=== PATIENT | female | born 1995 | race American Indian/Alaskan Native ===

== ENCOUNTER 2018-09-26 01:18 | Inpatient (IN) | payer MEDICAID ==
--- NOTE | 2018-09-26 02:32 | Ultrasound Report ---
FINAL REPORT EXAM: US OB LIMITED HISTORY: well being TECHNIQUE: A limited OB sonogram was obtained for evaluation of amniotic fluid index. FINDINGS: The fetus is in cephalic presentation. The heart rate is 132 BPM. The placenta is fundal in pos ition and is grade 1. The REDD is 11.5 cm which is normal. IMPRESSION: Cephalic presentation. Normal REDD of 11.5 cm. heart rate is 132 BPM.
--- NOTE | 2018-09-26 02:33 | Ultrasound Report ---
FINAL REPORT EXAM: US OB BPP WO NON-STRESS HISTORY: well being TECHNIQUE: A limited obstetrical sonogram was obtained for evaluation of the biophysical profile. FINDINGS: For movements, a score of 2 out of 2 was obtained. For breathing movements, a score of 2 out of 2 was obtained. For posture in tone, a score of 2 out of 2 was obtained. For qualitative amniotic fluid volume, a score of 2 out of 2 was obtained. The heart rate is 132 BPM IMPRESSION: Biophysical profile score of 8 out of 8
[2018-09-26] MEDS ORDERED: SUBLIMAZE IV PRN (02:35)
[2018-09-26] MEDS ORDERED: BRETHINE SUB-Q PRN (02:35)
[2018-09-26] MEDS ORDERED: BRETHINE IVP PRN (02:35)
[2018-09-26] MEDS ORDERED: AMPICILLIN/NS 2 GM/100 ML 2 GM/100 ML BAG IV ONE (02:35)
[2018-09-26] MEDS ORDERED: MINERAL OIL PO PRN (02:35)
[2018-09-26] MEDS ORDERED: XYLOCAINE 2% INFILTRATI ONE (02:35)
--- NOTE | 2018-09-26 02:50 | History and Physical Report ---
Addendum entered and electronically signed by MALOU GRADY CNM 09/27/18 08:50: Original Note: <MALOU GRADY - Last Filed: 09/26/18 02:51> History of Present Illness Date of examination: 09/26/18 Date of admission: 09/26/18 02:33 Chief complaint: SROM, decreased movement History of present illness: Past History : 3 Term Births: 0 Premature Births: 0 Living Children: 0 Para: 0 Mult. Births: 0 Prev : 0 Aborta: 1 Elect. Ab: 1 Spont. Ab: 1 # 1 Delivery date: 12/2015 Weeks Gestation: 13wks Delivery type: SAB Past Medical History: Reviewed history from 11/11/2015 and no changes required: Negative Past Medical History Past Surgical History: Reviewed history from 11/11/2015 and no changes required: T&A 2009 Past Medical History Abnormal PAP: negative Family Hx: Mother - htn Maternal aunt - breast ca Social Hx: Patient is single no smoking/etoh/drugs Smoking History: Patient has never smoked. hx thc but stopped no etoh Infection History Hx of STD: chlamydia HIV Risk Eval: no Hepatitis B Risk Eval: low risk Personal hx. of genital herpes: no Partner hx. of genital herpes: no Rash, Viral, or Febrile illness since last LMP? no Varicella/Chicken Pox Status: Previous Disease Genetic History Congenital Heart Defect: Mom: no Dad: no Lauren Disease: Mom: no Dad: no Thalassemia Mom: no Dad: no Neural Tube Defect Mom: no Dad: no Down's Syndrome Mom: no Dad: no Apollo-Sachs Mom: no Dad: no Sickle Cell Disease/Trait Mom: no Dad: no Hemophilia Mom: no Dad: no Muscular Dystrophy Mom: no Dad: no Cystic Fibrosis Mom: no Dad: no Hyde Chorea Mom: no Dad: no Mental Retardation Mom: no Dad: no Fragile X Mom: no Dad: no Other Genetic/Chromosomal Disorder Mom: no Dad: no Child w/other defect Mom: no Dad: no Enviromental Exposures Enviromental Exposures Reviewed Xray Exposure: no Medication, drug, or alcohol use since LMP: no Chemical/Other Exposure: no Exposure to Cat Liter: no Hx of Parvovirus (Fifth Disease): no Occupational Exposure to Children: none Active Medications (reviewed today): None Current Allergies (reviewed today): No known allergies Past History Past Medical History: other (see hpi) Past Surgical History: other (see hpi) [employer] History: other (see hpi) Family/Genetic History: other (see hpi) Social history: other (see hpi) - Obstetrical History : 3 Medications and Allergies Allergies Allergy/AdvReac Type Severity Reaction Status Date / Time No Known Allergies Allergy Verified 09/26/18 01:25 Active Meds: Active Medications Ephedrine Sulfate (Ephedrine Sulfate) 10 mg IV Q2M PRN PRN Reason: Hypotension Fentanyl (Sublimaze) 100 mcg IV Q2H PRN PRN Reason: Labor Pain Ampicillin Sodium (Polycillin/Ns 2 Gm/100 Ml) 2 gm in 100 mls @ 100 mls/hr IV ONCE ONE; Protocol Stop: 09/26/18 03:34 Ampicillin Sodium (Ampicillin/Ns 1 Gm/50 Ml) 1 gm in 50 mls @ 100 mls/hr IV Q4HR NANI; Protocol Lactated Ringer's (Lactated Ringers) 1,000 mls @ 125 mls/hr IV DIRECT NANI Oxytocin/Sodium Chloride (Pitocin/Ns 20 Unit/1000ml Drip) 20 units in 1,000 mls @ 125 mls/hr IV DIRECT NANI Oxytocin/Sodium Chloride (Pitocin/Ns 30 Unit/500ml) 30 units in 500 mls @ 2 mls/hr IV TITR NANI; Protocol Mineral Oil (Mineral Oil) 30 ml PO QHS PRN PRN Reason: Constipation Terbutaline Sulfate (Brethine) 0.25 mg SUB-Q ONCE PRN PRN Reason: Hyperstimulation/Hypertonicity Terbutaline Sulfate (Brethine) 0.25 mg IVP ONCE PRN PRN Reason: Hyperstimulation/Hypertonicity - Vital Signs Vital signs: Vital Signs Pulse BP 82 121/88 09/26/18 01:27 09/26/18 01:27 Temp Pulse Resp BP Pulse Ox 98.2 F 83 18 138/84 100 09/26/18 01:31 09/26/18 01:57 09/26/18 01:31 09/26/18 01:57 09/26/18 01:38 Results All other labs normal. Ultrasound: image reviewed (BPP 04/13. REDD 11.5cm, Cephalic) Assessment and Plan 23 y.o. IUP 36w 0d presents to triage with c/o SROM and decreased movement. Reports large gush of clear fluid at 0015 but is unsure if she has felt movement since then. BPP and REDD upon arrival to triage are 8/8 and 11.5cm, fetus is cephalic. SVE is 1/60/-2. Occasional contractions noted on TOCO. Category 1 tracing. GBS collected at last office visit but results are not available for review yet. Routine admission orders placed. Ampicillin per protocol for unknown GBS status. Will begin pitocin per protocol once first dose of abx has infused. Plan of care reviewed with Dr. Flores who agrees to pro ceed. Will continue to monitor and anticipate vaginal delivery. - Patient Problems (1) 36 weeks gestation of Current Visit: Yes Status: Acute (2) SROM (spontaneous rupture of membranes) Current Visit: Yes Status: Acute (3) premature rupture of membranes Current Visit: Yes Status: Acute <OMAR BLANCA - Last Filed: 09/26/18 05:28> History of Present Illness Date of admission: 09/26/18 02:33 Medications and Allergies Active Meds: Active Medications Ephedrine Sulfate (Ephedrine Sulfate) 10 mg IV Q2M PRN PRN Reason: Hypotension Fentanyl (Sublimaze) 100 mcg IV Q2H PRN PRN Reason: Labor Pain Ampicillin Sodium (Ampicillin/Ns 1 Gm/50 Ml) 1 gm in 50 mls @ 100 mls/hr IV Q4HR NANI; Protocol Lactated Ringer's (Lactated Ringers) 1,000 mls @ 125 mls/hr IV DIRECT NANI Last Admin: 09/26/18 03:26 Dose: 125 mls/hr Documented by: Oxytocin/Sodium Chloride (Pitocin/Ns 20 Unit/1000ml Drip) 20 units in 1,000 mls @ 125 mls/hr IV DIRECT NANI Oxytocin/Sodium Chloride (Pitocin/Ns 30 Unit/500ml) 30 units in 500 mls @ 2 mls/hr IV TITR NANI; Protocol Mineral Oil (Mineral Oil) 30 ml PO QHS PRN PRN Reason: Constipation Terbutaline Sulfate (Brethine) 0.25 mg SUB-Q ONCE PRN PRN Reason: Hyperstimulation/Hypertonicity Terbutaline Sulfate (Brethine) 0.25 mg IVP ONCE PRN PRN Reason: Hyperstimulation/Hypertonicity - Vital Signs Vital signs: Vital Signs Pulse BP 82 121/88 09/26/18 01:27 09/26/18 01:27 Temp Pulse Resp BP Pulse Ox 98.2 F 97 H 18 119/68 100 09/26/18 01:31 09/26/18 02:47 09/26/18 02:47 09/26/18 02:47 09/26/18 01:38 - Physical Exam Breasts: Positive: deferred Cardiovascular: Regular rate, Normal S1, Normal S2 Lungs: Positive: Normal air movement Abdomen: Positive: normal appearance, soft, normal bowel sounds. Negative: distention, tenderness Genitourinary (Female): Positive: normal external genitalia Vulva: both: normal Vagina: Positive: normal moisture. Negative: discharge Cervix: Negative: lesion, discharge Uterus: Positive: normal size, normal contour Adnexa: both: normal Anus/Rectum: Positive: normal perianal skin, heme negative. Negative: rectal mass, hemorrhoids Extremities: Deep Tendon Reflex Grade: Normal +2 - Obstetrical FHR: category 1 Uterine Contraction Monitor Mode: External Uterine Contraction Pattern: Irregular Uterine Tone Measurement Phase: Resting Uterine Contraction Intensity: Mild Results Result Diagrams: 09/26/18 03:00 Abnormal lab results 09/26/18 Range/Units 03:00 RBC 3.31 L (3.65-5.03) M/mm3 Hgb 9.9 L (10.1-14.3) gm/dl Hct 29.6 L (30.3-42.9) % All other labs normal. GBS done but not resulted. HBsAg Screen Negative Negative *1 RPR Non Reactive Non Reactive *2 Rubella Antibodies, IgG 2.49 index Immune >0.99 *3 Non-immune <0.90 Equivocal 0.90 - 0.99 Immune >0.99 ABO Grouping B *4 Rh Factor Positive *5 Please note: Prior records for this patient's ABO / Rh type are not available for additional verification. Antibody Screen Negative Negative *6 WBC 9.6 x10E3/uL 3.4-10.8 *7 RBC [L] 3.38 x10E6/uL 3.77-5.28 *8 Hemoglobin [L] 10.1 g/dL 11.1-15.9 *9 Hematocrit [L] 30.9 % 34.0-46.6 *10 MCV 91 fL 79-97 *11 MCH 29.9 pg 26.6-33.0 *12 MCHC 32.7 g/dL 31.5-35.7 *13 RDW [H] 15.7 % 12.3-15.4 *14 Platelets 232 x10E3/uL 150-379 *15 Neutrophils 78 % Not Estab. *16 Lymphs 14 % Not Estab. *17 Monocytes 6 % Not Estab. *18 Eos 1 % Not Estab. *19 Basos 0 % Not Estab. *20 ! Immature Cells <No Reported Value> *21 Neutrophils (Absolute) [H] 7.5 x10E3/uL 1.4-7.0 *22 Lymphs (Absolute) 1.3 x10E3/uL 0.7-3.1 *23 Monocytes(Absolute) 0.6 x10E3/uL 0.1-0.9 *24 Eos (Absolute) 0.1 x10E3/uL 0.0-0.4 *25 Baso (Absolute) 0.0 x10E3/uL 0.0-0.2 *26 ! Immature Granulocytes 1 % Not Estab. *27 ! Immature Grans (Abs) 0.1 x10E3/uL 0.0-0.1 *28 ! NRBC <No Reported Value> *29 Hematology Comments: <No Reported Value> *30 Tests: (2) AFP Tetra (460361) ! Results Report *31 ! Test Results: *Screen Negative* *32 ! Tests: (3) Cystic Fibrosis Profile (266794) ! CF, Screen Comment: *55 RESULTS: Negative for 32 mutations analyzed Tests: (4) HB Solu + Rflx [facility] ([id number]) Hemoglobin (Hgb) Solubility Negative Negative *57 Tests: (5) Panel 181997 ([id number]) HIV Screen 4th Generation wRfx Non Reactive Non Reactive *58 Tests: (6) HCV Ab w/Rflx to Verification ([id number]) ! HCV Ab <0.1 s/co ratio 0.0-0.9 *59 Tests: (7) Comment: ([id number]) ! Comment: SPRCS *60 Non reactive HCV antibody screen is consistent with no HCV infection, unless recent infection is suspected or other evidence exists to indicate HCV infection.
[2018-09-26] MEDS ORDERED: PITOCin/NS 20 UNIT/1000ML DRIP 20 UNITS/1,000 ML BAG IV SCH (03:00)
[2018-09-26] MEDS: LACTATED RINGERS 1,000 ML IV SCH ×2 (03:26→10:51)
[2018-09-26 03:47] LABS: Hematocrit 29.6 % (30.3-42.9); Hemoglobin 9.9 gm/dl (10.1-14.3); Mean Corpuscular HGB Conc 33 % (30-34); Mean Corpuscular Volume 89 fl (79-97); Platelet Count 320 K/mm3 (140-440); Red Blood Count 3.31 M/mm3 (3.65-5.03)
[2018-09-26] MEDS: PITOCin/NS 30 UNIT/500ML 30 UNITS/500 ML BAG IV SCH ×2 (05:19→07:46)
[2018-09-26] MEDS ORDERED: PITOCin/NS 30 UNIT/500ML 30 UNITS/500 ML BAG IV SCH (06:00)
[2018-09-26] MEDS: AMPICILLIN/NS 1 GM/50 ML 1 GM/50 ML BAG IV SCH ×2 (07:49→14:00)
--- NOTE | 2018-09-26 11:56 | Progress Note ---
Assessment and Plan Bolusing for epidural Internal monitors placed Pit decreased to 12mu Re-eval after epidural is placed. Subjective - Subjective Date of service: 09/26/18 (pt crying with pain despite IV pain meds) Patient reports: movement normal, contractions Objective - Vital Signs Vital Signs: Vital Signs - 12hr 09/26/18 09/26/18 09/26/18 01:27 01:31 01:38 Temperature 98.2 F Pulse Rate 82 82 95 H Respiratory 18 Rate Blood Pressure 121/88 Blood Pressure 121/88 [Left] O2 Sat by Pulse 100 Oximetry 09/26/18 09/26/18 09/26/18 01:57 02:44 02:47 Temperature Pulse Rate 83 97 H 97 H Respiratory 18 Rate Blood Pressure 138/84 119/68 Blood Pressure 119/68 [Left] O2 Sat by Pulse Oximetry 09/26/18 09/26/18 07:42 07:43 Temperature 98.1 F Pulse Rate 84 84 Respiratory 14 Rate Blood Pressure 89/53 Blood Pressure 89/53 [Left] O2 Sat by Pulse Oximetry - Exam Breasts: deferred Cardiovascular: Regular rate Lungs: Normal air movement Abdomen: Present: normal appearance, soft. Absent: distention, tenderness Uterus: Present: normal FHR: auscultation normal, category 1 Uterine Contraction Monitor Mode: Internal Cervical Dilatation: 4 (ISE/IUPC placed) Cervical Effacement Percentage: 100 (pit decreased to 12mu) station: 0 Uterine Contraction Pattern: Regular Uterine Tone Measurement Phase: Resting Uterine Contraction Intensity: Moderate Extremities: normal Deep Tendon Reflex Grade: Normal +2 - Labs Labs: Abnormal Labs 09/26/18 03:00 RBC 3.31 L Hgb 9.9 L Hct 29.6 L Laboratory Results - last 24 hr 09/26/18 09/26/18 03:00 03:00 WBC 9.0 RBC 3.31 L Hgb 9.9 L Hct 29.6 L MCV 89 MCH 30 MCHC 33 RDW 14.0 Plt Count 320 Blood Type B POSITIVE Antibody Screen Negative
[2018-09-26] MEDS ORDERED: LIDOCAINE 1.5%/EPI 1:200,000 INFILTRATI ONE (12:24)
[2018-09-26] MEDS ORDERED: XYLOCAINE 2%/ EPI 1:200,000 INFILTRATI ONE (12:25)
[2018-09-26] MEDS ORDERED: BENADRYL IV PRN (12:43)
[2018-09-26] MEDS ORDERED: NUBAIN IV PRN (12:43)
[2018-09-26] MEDS ORDERED: NARCAN 2 MG/2 ML IV PRN (12:43)
[2018-09-26] MEDS ORDERED: ZOFRAN IV PRN (12:43)
--- NOTE | 2018-09-26 12:43 | Anesthesia Consultation ---
Anesthesia Consult and Med Hx Date of service: 09/26/18 - Airway Anesthetic Teeth Evaluation: Good ROM Head & Neck: Adequate Mental/Hyoid Distance: Adequate Mallampati Class: Class II Intubation Access Assessment: Good - Pulmonary Exam CTA: Yes - Cardiac Exam Cardiac Exam: No Murmur - Pre-Operative Health Status ASA Pre-Surgery Classification: ASA2 Proposed Anesthetic Plan: Epidural - Pulmonary Hx Smoking: No Hx Asthma: No Hx Respiratory Symptoms: No SOB: No COPD: No Home Oxygen Therapy: No Hx Pneumonia: No Hx Sleep Apnea: No - Cardiovascular System Hx Hypertension: No Hx Coronary Artery Disease: No Hx Heart Attack/AMI: No Hx Angina: No Hx Percutaneous Transluminal Coronary Angioplasty (PTCA): No Hx Cardia Arrhythmia: No Hx Pacemaker: No Hx Internal Defibrillator: No Hx Valvular Heart Disease: No Hx Heart Murmur: No Hx Peripheral Vascular Disease: No - Central Nervous System Hx Neuromuscular Disorder: No Hx Seizures: No CVA: No Hx Back Pain: No Hx Psychiatric Problems: No - Gastrointestinal Hx Ulcer: No Hx Gastroesophageal Reflux Disease: No - Endocrine Hx Renal Disease: No Hx End Stage Renal Disease: No Hx Cirrhosis: No Hx Liver Disease: No Hx Insulin Dependent Diabetes: No Hx Non-Insulin Dependent Diabetes: No Hx Thyroid Disease: No Hx Hypothyroidism: No Hx Hyperthyroidism: No - Hematic Hx Anemia: Yes (Iron, induced) Hx Sickle Cell Disease: No - Other Systems Hx Alcohol Use: No Hx Substance Use: No Hx Cancer: No Hx Obesity: No
[2018-09-26] MEDS ORDERED: LACTATED RINGERS IV ONE (13:00)
[2018-09-26] MEDS ORDERED: fentaNYL-BUPIV 2 MCG/ML-0.125% 200 MCG/100 ML BAG EPIDURAL SCH (13:00)
--- NOTE | 2018-09-26 13:49 | Progress Note ---
Assessment and Plan Anesthesia spoke with pt. Will continue POC Anticipate delivery Subjective - Subjective Date of service: 09/26/18 (ISE replaced) Patient reports: movement normal, contractions Objective - Vital Signs Vital Signs: Vital Signs - 12hr 09/26/18 09/26/18 09/26/18 01:57 02:44 02:47 Temperature Pulse Rate 83 97 H 97 H Respiratory 18 Rate Blood Pressure 138/84 119/68 Blood Pressure 119/68 [Left] O2 Sat by Pulse Oximetry 09/26/18 09/26/18 09/26/18 07:42 07:43 12:31 Temperature 98.1 F Pulse Rate 84 84 98 H Respiratory 14 Rate Blood Pressure 89/53 116/72 Blood Pressure 89/53 [Left] O2 Sat by Pulse Oximetry 09/26/18 09/26/18 09/26/18 12:32 12:36 12:37 Temperature Pulse Rate 119 H 86 90 Respiratory Rate Blood Pressure 117/68 Blood Pressure [Left] O2 Sat by Pulse 74 L 93 Oximetry 09/26/18 09/26/18 09/26/18 12:39 12:47 12:51 Temperature Pulse Rate 95 H 109 H 107 H Respiratory Rate Blood Pressure 120/77 131/77 118/65 Blood Pressure [Left] O2 Sat by Pulse Oximetry 09/26/18 09/26/18 09/26/18 12:55 12:59 13:03 Temperature Pulse Rate 115 H 94 H 110 H Respiratory Rate Blood Pressure 118/68 117/64 113/65 Blood Pressure [Left] O2 Sat by Pulse 100 Oximetry 09/26/18 09/26/18 09/26/18 13:04 13:07 13:09 Temperature Pulse Rate 101 H 100 H 105 H Respiratory Rate Blood Pressure 120/69 Blood Pressure [Left] O2 Sat by Pulse 100 100 Oximetry 09/26/18 09/26/18 09/26/18 13:11 13:14 13:15 Temperature Pulse Rate 94 H 102 H 105 H Respiratory Rate Blood Pressure 119/71 118/66 Blood Pressure [Left] O2 Sat by Pulse 100 Oximetry 09/26/18 09/26/18 09/26/18 13:19 13:23 13:24 Temperature Pulse Rate 109 H 108 H 109 H Respiratory Rate Blood Pressure 121/73 125/74 Blood Pressure [Left] O2 Sat by Pulse 100 100 Oximetry 01/09/26/18 09/26/18 13:27 13:29 13:31 Temperature Pulse Rate 116 H 109 H 108 H Respiratory Rate Blood Pressure 111/71 122/86 Blood Pressure [Left] O2 Sat by Pulse 100 Oximetry 09/26/18 09/26/18 09/26/18 13:34 13:35 13:39 Temperature Pulse Rate 106 H 116 H 112 H Respiratory Rate Blood Pressure 115/73 120/75 Blood Pressure [Left] O2 Sat by Pulse 100 100 Oximetry 09/26/18 09/26/18 13:43 13:44 Temperature Pulse Rate 118 H 113 H Respiratory Rate Blood Pressure 117/74 Blood Pressure [Left] O2 Sat by Pulse 100 Oximetry - Exam Breasts: deferred Cardiovascular: Regular rate Lungs: Normal air movement Abdomen: Present: normal appearance, soft. Absent: distention, tenderness Uterus: Present: normal FHR: auscultation normal, category 2 (variables) Uterine Contraction Monitor Mode: Internal Cervical Dilatation: 9 (ISE replaced) Cervical Effacement Percentage: 100 station: 0 Uterine Contraction Pattern: Regular Uterine Tone Measurement Phase: Resting Uterine Contraction Intensity: Moderate Extremities: normal Deep Tendon Reflex Grade: Normal +2 - Labs Labs: Abnormal Labs 09/26/18 03:00 RBC 3.31 L Hgb 9.9 L Hct 29.6 L Laboratory Results - last 24 hr 09/26/18 09/26/18 03:00 03:00 WBC 9.0 RBC 3.31 L Hgb 9.9 L Hct 29.6 L MCV 89 MCH 30 MCHC 33 RDW 14.0 Plt Count 320 Blood Type B POSITIVE Antibody Screen Negative
[2018-09-26] MEDS ORDERED: PHENERGAN PO PRN (15:33)
[2018-09-26] MEDS ORDERED: TYLENOL PO PRN (15:33)
[2018-09-26] MEDS ORDERED: MILK OF MAGNESIA PO PRN (15:33)
[2018-09-26] MEDS ORDERED: LANSINOH TP PRN (15:33)
[2018-09-26] MEDS ORDERED: BENADRYL PO PRN (15:33)
[2018-09-26] MEDS ORDERED: DULCOLAX PR PRN (15:33)
[2018-09-26] MEDS ORDERED: TUCKS PAD TP PRN (15:33)
--- NOTE | 2018-09-26 15:47 | Procedure Note ---
OB Delivery Note - Delivery Date of Delivery: 09/26/18 Admissions Assistant: OMAR BLANCA Estimated blood loss: 300cc - Vaginal Delivery presentation: vertex Delivery position: OA Intrapartum events: labor-<37 weeks, PROM->1hr before delivery, mult.variable deceleratio (CAN X 1 ) Delivery induction: none Delivery augmentation: pitocin Delivery monitor: internal FHT, internal uterine Route of delivery: Delivery placenta: spontaneous Delivery cord: nuchal cord, 3 umbilical vessels Episiotomy: none Delivery laceration: none Anesthesia: epidural Delivery comments: live born female over intact perineum CAN X 1 reduced Baby to mom's abdomen skin to skin Placenta and membrane delivered complete and intact 3 vessel cord Pit IVFs Placenta to pathology 8/9, EBL 300, Wgt 5-3 Mom and baby remain LDR stable. - A at 1 minute: 8 at 5 minutes: 9 Infant Gender: Female (wgt 5-3)
[2018-09-26] MEDS ORDERED: SODIUM CHLORIDE FLUSH SYRINGE 10 ML IV SCH (16:00)
[2018-09-26] MEDS: IBUPROFEN PO SCH ×2 (18:37→23:53)
[2018-09-27 03:37] LABS: Hematocrit 28.1 % (30.3-42.9); Hemoglobin 9.3 gm/dl (10.1-14.3)
[2018-09-27] MEDS ORDERED: BOOSTRIX IM ONE (06:00)
[2018-09-27] MEDS: IBUPROFEN PO SCH ×2 (11:50→18:00)
--- NOTE | 2018-09-27 13:14 | Discharge Summary ---
Providers - Providers Date of Admission: 09/26/18 02:33 Date of discharge: 09/28/18 (Patient desires to discharge tomorrow ) Attending physician: PIETER SWANN Primary care physician: PIETER SWANN Hospitalization Reason for admission: SROM, Labor Condition: Good Pertinent studies: post delivery H&H 9.3/28.1. Pre-existing anemia on admission. Currently taking iron, asymptomatic. Procedures: Hospital course: uncomplicated labor & delivery and course Disposition: DC-01 TO HOME OR SELFCARE - Discharge Diagnoses (1) 36 weeks gestation of Status: Acute (2) SROM (spontaneous rupture of membranes) Status: Acute (3) premature rupture of membranes Status: Acute Core Measure Documentation - Palliative Care Palliative Care/ Comfort Measures: Not Applicable - Core Measures Any of the following diagnoses?: none Exam - Constitutional Vitals: Temp Pulse Resp BP Pulse Ox 98.5 F 92 H 20 106/75 100 09/27/18 07:20 09/27/18 07:20 09/27/18 07:20 09/27/18 07:20 09/27/18 07:20 General appearance: Present: no acute distress, well-nourished - EENT Eyes: Present: PERRL ENT: hearing intact, clear oral mucosa - Neck Neck: Present: supple, normal ROM - Respiratory Respiratory effort: normal Respiratory: bilateral: CTA - Cardiovascular Rhythm: regular Heart Sounds: Present: S1 & S2. Absent: rub, click - Extremities Extremities: pulses symmetrical, No edema Peripheral Pulses: within normal limits - Abdominal General gastrointestinal: Present: soft, non-tender, non-distended, normal bowel sounds Female genitourinary: Present: normal - Integumentary Integumentary: Present: clear, warm, dry - Musculoskeletal Musculoskeletal: gait normal, strength equal bilaterally - Psychiatric Psychiatric: appropriate mood/affect, intact judgment & insight - Neurologic Neurologic: CNII-XII intact, moves all extremities - Additional findings Additional findings: fundus firm, ML, U/1. Scant bleeding. Patient is planning to start pumping today for infant in NICU. States she has iron rx at home. Will send with colace rx per request. Plan Activity: no restrictions Diet: regular Follow up with: PIETER SWANN MD [Primary Care Provider] - 6 Weeks (Congratulations! Please call [phone] when discharged to schedule your appointment for 6 weeks. Call with any questions or concerns. )
[2018-09-27] MEDS ORDERED: M-M-R II VACCINE SUB-Q ONE (15:33)
[2018-09-28] MEDS: IBUPROFEN PO SCH ×2 (00:32→05:05)
[2018-09-28 08:29] VITALS: BP 121/70
== END 2018-09-28 11:25 | disposition home or self-care (01) | DRG 775 ==
LOC: TRG 01:18 → LD 02:33 → OB 16:17
PROVIDERS: ADMIT Obstetrics & Gynecology; ATTEND Obstetrics & Gynecology
PROC: 10E0XZZ Delivery of Products of Conception, External Approach (ICD-10-PCS; principal; 2018-09-26)
PROC: 3E0R3BZ Introduction of Anesthetic Agent into Spinal Canal, Percutaneous Approach (ICD-10-PCS; 2018-09-26)
PROC: 00HU33Z Insertion of Infusion Device into Spinal Canal, Percutaneous Approach (ICD-10-PCS; 2018-09-26)
PROC: 3E0234Z Introduction of Serum, Toxoid and Vaccine into Muscle, Percutaneous Approach (ICD-10-PCS; 2018-09-26)
DX: O42.913 Preterm premature rupture of membranes, unspecified as to length of time between rupture and onset of labor, third trimester (principal); O76 Abnormality in fetal heart rate and rhythm complicating labor and delivery; O69.81X0 Labor and delivery complicated by cord around neck, without compression, not applicable or unspecified; Z37.0 Single live birth; Z3A.36 36 weeks gestation of pregnancy; Z23 Encounter for immunization
CPT/HCPCS: 36415; 76815; 76819; 85014; 85018; 85027; 86592; 86850; 86900; 86901; 88307; G0378; A6250; J0290; J2590; J3010; J7120